=== PATIENT | female | born 1985 | race Caucasian/White ===

== ENCOUNTER 2017-12-14 09:58 | Inpatient (IN) | payer OTHER ==
[2017-12-14] VITALS (8 sets, daily range): BP systolic 117–132; BP diastolic 64–85
[~2017-12-14] VITALS: Ht 177.8 cm; Wt 122.0 kg
[2017-12-14] MEDS ORDERED: PRENATAL TABLE1 EAC3 PO (10:50)
[2017-12-14] MEDS ORDERED: COLACE100 MG PO (10:50)
[2017-12-14 12:01] LABS: BASOPHIL (%) 0.2 % (0-1); EOSINOPHIL (%) 0.3 % (0-5); HEMATOCRIT 35.6 % (36.0-46.0); HEMOGLOBIN 11.4 G/DL (11.9-15.5); IMMATURE GRANULOCYTE (%) 0.6 % (0.0-0.7); LYMPHOCYTE (%) 23.7 % (15-42); MCH 26.1 PG (29.0-34.0); MCV 81.7 FL (83-99); MONOCYTE (%) 4.2 % (3-12); MONOCYTE COUNT 0.5 K/uL (0-0.8); NEUTROPHIL COUNT 8.9 K/uL (1.8-6.4); PLATELET COUNT 186 K/uL (156-360); RBC DIS.WIDTH-CV 14.7 % (11.8-14.6); RBC DIS.WIDTH-SD 43.5 % (39-53); RED BLOOD COUNT 4.36 M/uL (3.80-5.20); WHITE BLOOD COUNT 12.5 K/uL (4.1-10.2)
[2017-12-14] MEDS ORDERED: ENDOCET 5-3251 EACH PO (17:27)
[2017-12-14] MEDS ORDERED: IBUPROFEN800 MG PO (17:27)
[2017-12-15 01:46] VITALS: BP 115/64
[2017-12-15 08:12] LABS: BASOPHIL (%) 0.1 % (0-1); EOSINOPHIL (%) 0.2 % (0-5); HEMATOCRIT 26.5 % (36.0-46.0); IMMATURE GRANULOCYTE (%) 0.6 % (0.0-0.7); LYMPHOCYTE (%) 20.8 % (15-42); LYMPHOCYTE COUNT 2.7 K/uL (1.0-2.8); MCH 26.7 PG (29.0-34.0); MCHC 32.5 G/DL (30.0-36.0); MCV 82.3 FL (83-99); MONOCYTE (%) 5.4 % (3-12); MONOCYTE COUNT 0.7 K/uL (0-0.8); NEUTROPHIL (%) 72.9 % (45-76); NEUTROPHIL COUNT 9.5 K/uL (1.8-6.4); PLATELET COUNT 151 K/uL (156-360); RBC DIS.WIDTH-CV 14.9 % (11.8-14.6); RBC DIS.WIDTH-SD 44.8 % (39-53)
[2017-12-15 08:13] LABS: HEMOGLOBIN 8.6 G/DL (11.9-15.5); RED BLOOD COUNT 3.22 M/uL (3.80-5.20)
[2017-12-16 22:21] VITALS: BP 119/65
[2017-12-17 07:03] VITALS: BP 135/80
[2017-12-17 15:17] VITALS: BP 126/57
[2017-12-17 22:41] VITALS: BP 137/80
[2017-12-18 08:00] VITALS: BP 129/77
== END 2017-12-18 13:40 | disposition home or self-care (01) | DRG 765 ==
LOC: LDRP-OP 09:58 → 2WEST 09:59 → LDRP-OP 01-20 09:08
PROVIDERS: Nurse Practitioner; Obstetrics & Gynecology Obstetrics
PROC: 10D00Z1 Extraction of Products of Conception, Low, Open Approach (ICD-10-PCS; principal; 2017-12-14)
DX: O36.63X0 Maternal care for excessive fetal growth, third trimester, not applicable or unspecified (principal); O99.02 Anemia complicating childbirth; D62 Acute posthemorrhagic anemia; O75.89 Other specified complications of labor and delivery; O99.824 Streptococcus B carrier state complicating childbirth; Z3A.39 39 weeks gestation of pregnancy; Z37.0 Single live birth; O34.13 Maternal care for benign tumor of corpus uteri, third trimester; D25.2 Subserosal leiomyoma of uterus; O99.213 Obesity complicating pregnancy, third trimester; E66.9 Obesity, unspecified
CPT/HCPCS: 85025; 86850; 86900; 86901; J0690; J1100; J1885; J2210; J2274; J2405; J2540; J7120